=== PATIENT | male | born 1960 | race Caucasian/White ===

== ENCOUNTER 2022-03-27 16:27 | Emergency (ER) | payer OTHER ==
[~2022-03-27] VITALS: Ht 172.7 cm; Wt 90.7 kg
[2022-03-27] MEDS ORDERED: Permethrin60 GM TOP (17:26)
== END 2022-03-27 18:07 | disposition home or self-care (01) ==
LOC: ER 16:27
DX: B86 Scabies (principal); Z91.013 Allergy to seafood; Z88.6 Allergy status to analgesic agent
CPT/HCPCS: 99283

== ENCOUNTER 2023-02-27 03:55 | Inpatient (IN) | payer OTHER ==
[2023-02-27] VITALS (35 sets, daily range): BP systolic 97–150; BP diastolic 45–112
[~2023-02-27] VITALS: Ht 170.2 cm; Wt 112.0 kg
[~2023-02-27 03:55] MED LIST: Permethrin60 GM TOP
[2023-02-27 04:18] LABS: BASOPHILS ABSOLUTE AUTO 0.07 K/mm3 (0.00-0.23); BASOPHILS PERCENT AUTO 1 % (0-2); EOSINOPHILS ABSOLUTE AUTO 0.17 K/mm3 (0.00-0.68); EOSINOPHILS PERCENT AUTO 1 % (0-6); Hematocrit 37.2 % (37.0-53.0); Hemoglobin 11.3 g/dL (13.5-17.5); IMMATURE GRAN ABSOLUTE AUTO 0.05 K/mm3 (0.00-0.10); IMMATURE GRAN PERCENT AUTO 0 % (0-1); LYMPHOCYTES ABSOLUTE AUTO 2.21 K/mm3 (0.84-5.20); LYMPHOCYTES PERCENT AUTO 16 % (21-46); MONOCYTES ABSOLUTE AUTO 0.62 K/mm3 (0.16-1.47); MONOCYTES PERCENT AUTO 5 % (4-13); Mean Corpuscular HGB 21.6 pg (26.0-34.0); Mean Corpuscular HGB Conc 30.4 g/dL (31.5-36.5); Mean Corpuscular Volume 71 fL (80-100); Mean Platelet Volume 10.1 fL (9.1-12.4); NEUTROPHILS ABSOLUTE AUTO 10.49 K/mm3 (1.96-9.15); NEUTROPHILS PERCENT AUTO 77 % (41-73); Platelet Count 387 K/mm3 (150-400); RDW Coefficient Variation 15.3 % (11.7-14.2); RDW Standard Deviation 38.8 fL (35.1-46.3); Red Blood Cell Count 5.22 M/mm3 (4.30-5.90); White Blood Cell Count 13.61 K/mm3 (4.00-11.30)
[2023-02-27 04:32] LABS: Bilirubin, Total 0.2 mg/dL (0.1-1.0); Bun/Creatinine Ratio 14.7 (12.0-20.0); Calcium, Blood 9.4 mg/dL (8.5-10.1); Creatinine, Blood 1.02 mg/dL (0.60-1.20); Globulin, Blood 4.1 g/dL (2.2-4.0); Potassium, Blood 3.8 mmol/L (3.5-5.5); Total Protein, Blood 8.1 g/dL (6.4-8.2)
[2023-02-27 04:36] LABS: International Normalized Ratio 0.98; Prothrombin Time Results 10.3 Sec (9.7-11.5)
--- NOTE | 2023-02-27 07:10 | NUR ---
ASSUMED CARE PT IS A&O X4; SPO2 >92% ON RA; MAP >65 W/ SBP IN 160-170'S; CALLED DR LEE W/ ORDERS FOR HYDRALAZINE. PT DENIES CP, SOB, OR NAUSEA. COMPLAINS OF RIGHT COLLAR BONE PAIN THAT IS CHRONIC FOR PT. RIGHT RADIAL/FEMORAL SITE FREE OF OOZING/HEMATOMA. 11ML'S IN TR BAND PER REPORT. REPORT TO BE GIVEN TO ONCOMING NURSE. DR PIERRE AND DR LEE AT BEDSIDE AT ONE POINT SINCE ADMIT TO ASSESS AND TALK W/ PT.
[2023-02-27 07:56] LABS: CHOL/HDL RATIO 4.2; Cholesterol 162 mg/dL (50-200); HDL Cholesterol 39 mg/dL (>39); LDL/HDL RATIO 2.7; Low Density Lipoprotein Chol 106 mg/dL (0-110); Triglycerides 83 mg/dL (30-160); Very Low Density Lipoprot Chol 16 mg/dL (6-32)
[2023-02-27 08:14] LABS: U Amphetamine Screen Not Detected; U Barbituate Screen Not Detected; U Benzodiazapine Screen Not Detected; U Buprenorphine Screen Not Detected; U Cannabinoids Screen Not Detected; U Cocaine Screen Not Detected; U Methadone Screen Not Detected; U Methamphetamine Screen Not Detected; U Opiates Screen Not Detected; U Oxycodone Screen Not Detected; U Phencyclidine Screen Not Detected; U Propoxyphene Screen Not Detected
--- NOTE | 2023-02-27 08:44 | NUR ---
AM NOTE... ASSUMED CARE OF PT AT 0700, PT IS A&Ox4. S/P ANGIO WITH STENT TO THE RCA. PT DENIES CHEST PAIN/PRESSURE N/V OR SOB AT THIS TIME. PT HAS A RIGHT RADIAL SITE AND A SHEATH IN THE RIGHT GROIN. PT IS IN SINUS TACH IN THE 100'S-110'S. HE IS HYPERTENSIVE WITH SBPs IN THE 170'S-190'S. HE IS ON RA WITH O2 SATS>90%. THE PT WAS EDUCATED ON CARE OF THE RIGHT RADIAL SITE AND THE RIGHT GROIN SITE TO PREVENT BLEEDING, OOZING OR A HEMATOMA TO EITHER SITE. PT HAS BEEN NON-COMPLIANT WITH THIS EDUCATION. HE CONTINUES TO USE HIS RIGHT HAND/WRIST AND CONTINUES TO LIFT HIS RIGHT LEG AND SIT UP IN THE BED. PT VERBALIZED "I DON'T CARE I'M TIRED OF LAYING FLAT AND NOT MOVING!" WILL CONTINUE TO MONITOR.
[2023-02-27 12:11] LABS: Magnesium, Blood 1.8 mg/dL (1.6-2.4)
[2023-02-27 12:13] LABS: Bun/Creatinine Ratio 13.6 (12.0-20.0); Calcium, Blood 8.8 mg/dL (8.5-10.1); Creatinine, Blood 0.88 mg/dL (0.60-1.20)
--- NOTE | 2023-02-27 12:59 | NUR ---
PT UPDATE... PT HAS HAD 5 EPISODES OF SMALL RUNS OF VTACH SINCE 0700 AND 1 EPISODE OF 42 BEATS OF VTACH, PT IS NOT SYMPTOMATIC WITH THESE EPISODES AND HIS BP CONTINUES TO BE STABLE WITH MAPS> 65 AND SBPs 110-130'S. PT CONTINUES TO DENY ANY CHEST PAIN/PRESSURE SOB OR N/V. WAS NOTIFIED AND NEW ORDERS TO CHECK K+ AND MAG, NEW ORDERS FOR PO MAGOX WAS GIVEN. WILL CONTINUE TO MONITOR.
--- NOTE | 2023-02-27 14:27 | NUR ---
PT UPDATE.... RIGHT FEMORAL SHEATH WAS PULLED BY [facility], MANUAL PRESSURE WAS HELD FOR 20MINS UNTIL HEMOSTASIS WAS ACHIEVED. PT'S VS STABLE. PT'S SISTER AT THE BEDSIDE. THE PT AND HIS SISTER SPOKE WITH DIRECTOR OF PURCHASING ABOUT THE PT'S DISCHARGE PLANS. WILL CONTINUE TO MONITOR.
--- NOTE | 2023-02-27 18:26 | NUR ---
SHIFT SUMMARY... THE PT'S SHEATH AND TR BAND WERE REMOVED WNL, NO SWELLING, BLEEIND OR HEMATOMA WAS NOTED. PT HAS DENIED ANY CHEST PAIN SINCE ARRIVING AT THE ROOM. THE PT'S BP IMPROVED AFTER HE TOOK HIS PO MEDICATIONS. THE PT HAD SEVERAL RUNS OF VTACH THAT WERE NOT SYMPTOMATIC, THOSE EPISODES HAVE DECREASED SINCE THIS AFTERNOON. THE PT'S SISTER WAS AT THE BEDSIDE, SHE WAS UPDATED ON THE PT'S CONDTION AND PLAN OF CARE. PER DR. PIERRE PT IS TO BE NPO AFTER MIDNIGHT FOR POSSIBLE COMPUTER SCIENCE PROFESSOR PROCEDURE. CALL LIGHT IN REACH WILL CONTINUE TO MONITOR UNTIL REPORT IS GIVEN TO ONCOMING RN.
--- NOTE | 2023-02-27 19:39 | NUR ---
ASSUMED CARE PT IS A&O X4; SPO2 >92% ON RA; MAP >65 SBP IN THE 110'S; HR 80'S. PT DENIES CP, SOB, OR NAUSEA. RIGHT RADIAL AND FEMORAL SITE OBSERVED WITH OFFGOING NURSE. NO OOZING OR HEMATOMA NOTED AT EITHER SITE. NO BRUISING OR COMPLAINTS OF FLANK PAIN FROM PT. PT RESTING QUIETLY.
--- NOTE | 2023-02-27 23:51 | NUR ---
UPDATE PT STATES INABILITY TO SLEEP "TOO MUCH ON MY MIND". HOSPITALIST CALLED W/ ORDERS FOR OT MELATONIN. PT CONTINUES TO DENY CP. RADIAL AND FEMORAL SITES UNCHANGED FROM PREVIOUS ASSESSMENT.
[2023-02-28] VITALS (37 sets, daily range): BP systolic 91–129; BP diastolic 54–92
[2023-02-28 04:44] LABS: BASOPHILS ABSOLUTE AUTO 0.04 K/mm3 (0.00-0.23); BASOPHILS PERCENT AUTO 0 % (0-2); EOSINOPHILS PERCENT AUTO 1 % (0-6); Hematocrit 29.7 % (37.0-53.0); Hemoglobin 9.1 g/dL (13.5-17.5); IMMATURE GRAN ABSOLUTE AUTO 0.04 K/mm3 (0.00-0.10); IMMATURE GRAN PERCENT AUTO 0 % (0-1); LYMPHOCYTES PERCENT AUTO 21 % (21-46); MONOCYTES ABSOLUTE AUTO 1.16 K/mm3 (0.16-1.47); MONOCYTES PERCENT AUTO 11 % (4-13); Mean Corpuscular HGB 21.9 pg (26.0-34.0); Mean Corpuscular HGB Conc 30.6 g/dL (31.5-36.5); Mean Corpuscular Volume 71 fL (80-100); Mean Platelet Volume 10.3 fL (9.1-12.4); NEUTROPHILS ABSOLUTE AUTO 7.09 K/mm3 (1.96-9.15); NEUTROPHILS PERCENT AUTO 66 % (41-73); Platelet Count 338 K/mm3 (150-400); RDW Coefficient Variation 15.6 % (11.7-14.2); RDW Standard Deviation 39.8 fL (35.1-46.3); Red Blood Cell Count 4.16 M/mm3 (4.30-5.90); White Blood Cell Count 10.73 K/mm3 (4.00-11.30)
[2023-02-28 05:15] LABS: Albumin, Blood 3.3 g/dL (3.4-5.0); Bilirubin, Total 0.8 mg/dL (0.1-1.0); Bun/Creatinine Ratio 16.2 (12.0-20.0); Calcium, Blood 8.5 mg/dL (8.5-10.1); Creatinine, Blood 1.11 mg/dL (0.60-1.20); Globulin, Blood 3.2 g/dL (2.2-4.0); Potassium, Blood 3.8 mmol/L (3.5-5.5); Total Protein, Blood 6.5 g/dL (6.4-8.2)
--- NOTE | 2023-02-28 06:19 | NUR ---
SHIFT SUMMARY PT RESTED QUIETLY/SLEPT FOR MOST OF NIGHT AFTER MELATONIN ADMINISTRATION. CONTINUES TO DENY CP, SOB, OR NAUSEA. BOTH RADIAL AND FEMORAL SITES REMAIN UNCHANGED W/ NO BRUISING NOTED ON FLANK. NSR 70'S; SPO2 >92% ON RA; MAP >65. NO ACUTE EVENTS OVERNIGHT.
--- NOTE | 2023-02-28 07:30 | NUR ---
DR. PIERRE CONTACTED AND ASKED ABOUT GIVING AM MEDICATIONS RECEIVED REPORT THAT PATIENT MAY GO BACK TO WOMEN NURSE TODAY. DR. PIERRE STATED TO KEEP PATIENT NPO BUT TO GIVE ALL 0900 MEDICATIONS WITH SMALL SIP OF WATER.
--- NOTE | 2023-02-28 08:00 | NUR ---
INITIAL ASSESSMENT PATIENT SLEEPING UPON ENTERING ROOM. PATIENT ALERT AND ORIENTED X 4. PATIENT STATES HE "FEELS GROGGY" THIS AM AND THAT IT IS PROBABLY FROM TAKING MELATONIN LAST NIGHT. FLAT AFFECT NOTED. PATIENT COOPERATIVE. PATIENT AFEBRILE. PATIENT DENIES PAIN ANYWHERE INCLUDING CHEST PAIN OR PRESSURE. PATIENT SATTING 90% AND GREATER ON RA. LUNGS CLEAR THROUGHOUT. PATIENT IN SR, HR IN THE 70S. SBP IN THE LOW 100S. UMBILICAL HERNIA NOTED. PATIENT NPO AT THIS TIME IN CASE GOES BACK TO [employer]. DATE OF LAST BM UNKNOWN. URINAL AT BEDSIDE. R RADIAL AND R GROIN [employer] ACCESS SITE WNL; NO BLEEDING, BRUISING, OR HEMATOMA NOTED; TEGADERMS IN PLACE. IV FLUSHED AND SALINE LOCKED. BED LOW, CALL LIGHT IN REACH. CARE CONTINUES.
--- NOTE | 2023-02-28 12:00 | NUR ---
PATIENT AFEBRILE. HR IN THE 70S. SBP IN THE LOW 100S. PATIENT IRRITABLE AT TIMES. GRION AND RADIAL SITES REMAIN STABLE WITH NO CHANGES. BLOOD SUGAR 110. NO OTHER ACUTE CHANGES TO NOTE ON AT THIS TIME. CARE CONTINUES.
--- NOTE | 2023-02-28 12:30 | NUR ---
PATIENT ANGRY AND PULLING OFF LINES AND CORDS. THIS IS THE 4TH TIME THAT PATIENT HAS PULLED OFF LINES/ CORDS/ MONITORING EQUIPMENT TODAY. PATIENT HAS BEEN IRRITABLE THIS SHIFT BUT THIS TIME PATIENT ANGRY AND TRYING TO GET CLOTHES/ BELONGINGS DOWN. RAISE DRILLER ASKED WHAT PATIENT WAS DOING AND IF NEEDED HELP AND PATIENT STATES "I AM OUT OF HERE!". PATIENT MAD SAYING THAT "HIS BED IS A SHIT SHOW". PATIENT ASKED IF HE WOULD LIKE REGULAR SHEET INSTEAD OF LIFT SHEET ON BED. PATIENT STATED "NO" AND THEN GOT BACK IN BED. WHILE RAISE DRILLER ATTEMPTING TO PUT MONITORING EQUIPMENT BACK ON PATIENT, PATIENT STATES "YOU REALLY THINK THAT STUFF IS GOING TO BE ABLE TO TELL YOU IF I HAVE A COLD?". RAISE DRILLER ASKED IF HE WOULD LIKE WARM TEA OR WARM BLANKET. PATIENT STATES NO. THIS NURSE TO ROOM. PATIENT SEEMS GUARDED AND IS NOT ANSWERING MOST OF NURSE'S QUESTIONS ABOUT WHY HE IS UPSET. NURSE ASKED IF PATIENT REMEMBERED CONVERSATION WITH DR. PIERRE IN AM. PATIENT STATES "NO". PATIENT INFORMED THAT IT SOUNDS LIKE HE WILL BE ABLE TO GO HOME TOMORROW AND WILL HAVE THE REST OF HIS HEART FIXED OUTPATIENT. PATIENT SEEMED TO BECOME SLIGHTLY MORE COOPERATIVE AT THIS TIME AND ALLOWED NURSE TO PUT MONITORING EQUIPMENT BACK ON. BED ALARM ON. CARE CONTINUES.
--- NOTE | 2023-02-28 16:40 | NUR ---
PATIENT AFEBRILE. HR IN THE 60S. SBP IN THE LOW 100S. BLOOD SUGAR 120. R GROIN AND R WRISTS SITES REMAIN STABLE AND UNCHANGED. PATIENT AMBULATED AROUND ROOM WITH NURSE IN TOW. PATIENT DENIES CHEST PAIN OR PRESSURE. PATIENT EDUCATED ON IMPORTANCE ON TAKING ASPIRIN AND BRILINTA AT HOME TO KEEP STENT OPEN; UNSURE IF PATIENT UNDERSTANDS; REINFORCEMENT NEEDED. NO OTHER ACUTE CHANGES TO NOTE ON AT THIS TIME. CARE CONTINUES.
--- NOTE | 2023-02-28 18:38 | NUR ---
SHIFT SUMMARY PATIENT TIRED THIS SHIFT. PATIENT NAPPED ON AND OFF THROUGHOUT DAY AND DID NOT WANT TO BE BOTHERED MUCH. PATIENT REMAINED ALERT AND ORIENTED X 4, AFEBRILE. PATIENT HAS FLAT AFFECT. IRRITABLE AT TIMES. PATIENT BECAME ANGRY AT ONE POINT (FOR UNKNOWN REASON) AND WAS TRYING TO GO HOME. PATIENT CONVINCED THAT IT WAS FOR HIS BEST INTEREST TO STAY. PATIENT CALMED DOWN AFTER LONG TALK. PATIENT SBA AROUND ROOM. PATIENT AMBULATED WELL THIS SHIFT AND HAD NO COMPLAINTS OF CHEST PAIN OR PRESSURE DURING OR AFTER THE WALK AROUND THE ROOM. PATIENT HAD NO COMPLAINTS FOR ENTIRETY OF SHIFT. PATIENT REMAINED SATTING 90% AND GREATER ON RA. PATIENT REMAINED IN SR, HR 60S TO 70S. SBP 90S TO 120S. NO BM THIS SHIFT. PATIENT HAD GOOD APPETITE. PATIENT VOIDED 420 MLS OF JENNIFER COLORED URINE INTO URINAL INDEPENDENTLY. R RADIAL AND R GROIN SITES REMAINED STABLE; NO BLEEDING, BRUISING, OR HEMATOMAS T/O SHIFT. BLOOD SUGARS RANGED FROM 110 TO 120S THIS SHIFT. PATIENT REFUSED BED BATH THIS SHIFT. PATIENT EDUCATED ON IMPORTANCE OF TAKING ASA AND BRILINTA DAILY AFTER HE GOES HOME BECAUSE OF STENT PLACEMENT. UNSURE IF PATIENT UNDERSTANDS; REINFORCEMENT NEEDED. BED LOW, CALL LIGHT IN REACH. REPORT WILL BE GIVEN TO ASSUMING GRINDING SUPERVISOR NURSE SHORTLY.
--- NOTE | 2023-02-28 19:29 | NUR ---
ASSUMED CARE PT IS A&O X4; SPO2 >92% ON RA; MAP >65; NSR 80'S. PT DENIES CP, SOB, OR NAUSEA. AT THIS TIME COOPERATIVE W/ CARE. SALINE LOCKED. BOTH FEMORAL AND RADIAL SITES REMAIN UNCHANGED FROM PREVIOUS NIGHT'S SHIFT.
[2023-03-01] VITALS (13 sets, daily range): BP systolic 94–148; BP diastolic 52–93
[2023-03-01 04:07] LABS: BASOPHILS ABSOLUTE AUTO 0.05 K/mm3 (0.00-0.23); BASOPHILS PERCENT AUTO 1 % (0-2); EOSINOPHILS ABSOLUTE AUTO 0.22 K/mm3 (0.00-0.68); EOSINOPHILS PERCENT AUTO 3 % (0-6); Hematocrit 29.7 % (37.0-53.0); Hemoglobin 8.8 g/dL (13.5-17.5); IMMATURE GRAN ABSOLUTE AUTO 0.04 K/mm3 (0.00-0.10); IMMATURE GRAN PERCENT AUTO 0 % (0-1); LYMPHOCYTES ABSOLUTE AUTO 2.44 K/mm3 (0.84-5.20); LYMPHOCYTES PERCENT AUTO 27 % (21-46); MONOCYTES ABSOLUTE AUTO 0.87 K/mm3 (0.16-1.47); MONOCYTES PERCENT AUTO 10 % (4-13); Mean Corpuscular HGB 21.4 pg (26.0-34.0); Mean Corpuscular HGB Conc 29.6 g/dL (31.5-36.5); Mean Corpuscular Volume 72 fL (80-100); Mean Platelet Volume 10.4 fL (9.1-12.4); NEUTROPHILS ABSOLUTE AUTO 5.27 K/mm3 (1.96-9.15); NEUTROPHILS PERCENT AUTO 59 % (41-73); Platelet Count 323 K/mm3 (150-400); RDW Coefficient Variation 15.4 % (11.7-14.2); RDW Standard Deviation 40.1 fL (35.1-46.3); Red Blood Cell Count 4.11 M/mm3 (4.30-5.90); White Blood Cell Count 8.89 K/mm3 (4.00-11.30)
[2023-03-01 04:28] LABS: Albumin, Blood 3.3 g/dL (3.4-5.0); Bilirubin, Total 0.5 mg/dL (0.1-1.0); Bun/Creatinine Ratio 19.8 (12.0-20.0); Calcium, Blood 8.5 mg/dL (8.5-10.1); Creatinine, Blood 1.01 mg/dL (0.60-1.20); Globulin, Blood 3.3 g/dL (2.2-4.0); Potassium, Blood 3.7 mmol/L (3.5-5.5); Total Protein, Blood 6.6 g/dL (6.4-8.2)
--- NOTE | 2023-03-01 06:06 | NUR ---
SHIFT SUMMARY PT A&O X4; SPO2 >92% ON RA; MAP >65; HR 60-70'S. PT HR DIPPED DOWN INTO HIGH 40'S SEVERAL TIMES DURING THE NIGHT FOR LESS THAN A MINUTE; PT ASYMPTOMATIC AND DENIED CP, DIZZINESS, OR LIGHT HEADEDNESS. PT CONTINUES TO DENY CP, SOB, OR NAUSEA. BOTH FEMORAL AND RADIAL SITES WNL. PT STATES HE DID NOT SLEEP WELL; RESTED QUIETLY T/O MOST OF NIGHT AND WAS COOPERATIVE W/ CARE. NO ACUTE EVENTS OVERNIGHT.
--- NOTE | 2023-03-01 09:03 | NUR ---
AM NOTE: PATIENT ALERT AND ORIENTED. VERY ANXIOUS ABOUT HIS KEYS AND WALLET AND NOT WANTING TO GO BACK TO [facility]. PATIENT STATES HE IS ON WAITLIST TO MOVE TO [facility] IN [place]. ON ROOM AIR, LUNGS SOUNDING CLEAR. DENIES SOB/COUGH. EVEN AND UNLABORED RESPIRATIONS. TELE SHOWING SR WITH HR 70-80'S. DENIES CHEST PAIN/PRESSURE/PALPITATIONS. BP STABLE. RIGHT RADIAL AND RIGHT GROIN SITE WNL. NO SIGNS OF BLEEDING, REMAINS SOFT AND NONTENDER. TEGADERMS IN PLACE. BOWEL TONES PRESENT. EATING AND VOIDING WNL. UMBILICAL HERNIA PRESENT. DR. PIERRE, DR. MORALEZ AND DR. THORNTON BY THIS AM TO ASSESS. POSSIBLE DISCHARGE. THIS RN PROVIDED EDUCATION THIS AM REGARDING NEW MEDICATIONS AND IMPORTANCE OF THEM. PATIENT ABLE TO TEACH BACK MEDICATION EDUCATION. CALL LIGHT IN REACH. EATING BREAKFAST AT THIS TIME.
[2023-03-01] MEDS ORDERED: ATOR80 PO (11:14)
[2023-03-01] MEDS ORDERED: ASPI81CH PO (11:14)
[2023-03-01] MEDS ORDERED: Prinivil10 MG PO (11:15)
[2023-03-01] MEDS ORDERED: METO50ER PO (11:16)
[2023-03-01] MEDS ORDERED: TICA90TA PO (11:17)
--- NOTE | 2023-03-01 11:47 | NUR ---
PLANS FOR DISCHARGE, THIS RN CALLED [facility] TO SET UP CARDIAC FOLLOW UP APPOINTMENT WITHIN 1-2 WEEKS, HEART CENTER TO CALL PATIENT BACK TO SCHEDULE APPOINTMENT.
--- NOTE | 2023-03-01 13:06 | NUR ---
PATIENT SISTER ON WAY TO SUPPLIER MANAGER. ONCE SISTER IS HERE THIS RN WILL REVIEW DISCHARGE EDUCATION. PATIENT GETTING DRESSED AT THIS TIME. REFUSES THIS RN'S HELP WITH GETTING DRESSED.
--- NOTE | 2023-03-01 14:08 | NUR ---
DISCHARGE: SISTER JOSE E IN TO PICK PATIENT UP. THIS RN REVIEWED ALL DISCHARGE INSTRUCTIONS INCLUDING NEW MEDICATIONS, HOLDING PARAMETERS FOR METOPROLOL, STENT CARD, FOLLOW UP WITH PCP/CARDIOLOGY/DR. MANZO, WRIST AND GROIN SITE PRECAUTIONS, SIGNS/SYMPTOMS OF WHEN TO RETURN. THIS RN CONFIRMED PATIENT CELL PHONE NUMBER FOR HEART CENTER TO CALL AND SCHEDULE 1-2 WEEK FOLLOW UP APPOINTMENT. THIS RN ASLO CONFIRMED AND CALLED THE [facility] TO ENSURE MEDICATION LIST WAS FAXED. PATIENT INSTRUCTED TO MARKETING SALES CONSULTANT MEDICATIONS FROM [facility] AND TAKE PRESCRIBED. PATIENT LEFT UNIT WITH ALL PERSONAL BELONGINGS VIA WHEELCHAIR.
--- NOTE | 2023-03-01 14:55 | NUR ---
MED REC EDIT DONE AFTER PATIENT WAS DISCHARGED. PATIENT CALLED AND UPDATED ON HOLDING PARAMETERS FOR METORPOLOL AND LISINOPRIL AND NO HOLDING PARAMETERS FOR BRILINTA. NO OTHER CHANGES TO MED REC
== END 2023-03-01 13:45 | disposition home or self-care (01) | DRG 324 ==
LOC: ER 03:55 → ICUE 04:10
PROVIDERS: Emergency Medicine; Family Medicine; ADMIT Internal Medicine Cardiovascular Disease
PROC: 027034Z Dilation of Coronary Artery, One Artery with Drug-eluting Intraluminal Device, Percutaneous Approach (ICD-10-PCS; principal; 2023-02-27)
PROC: 02F03ZZ Fragmentation in Coronary Artery, One Artery, Percutaneous Approach (ICD-10-PCS; 2023-02-27)
PROC: 4A023N7 Measurement of Cardiac Sampling and Pressure, Left Heart, Percutaneous Approach (ICD-10-PCS; 2023-02-27)
PROC: B2111ZZ Fluoroscopy of Multiple Coronary Arteries using Low Osmolar Contrast (ICD-10-PCS; 2023-02-27)
PROC: B240ZZ3 Ultrasonography of Single Coronary Artery, Intravascular (ICD-10-PCS; 2023-02-27)
DX: I21.19 ST elevation (STEMI) myocardial infarction involving other coronary artery of inferior wall (principal); I47.10 Supraventricular tachycardia, unspecified; I16.1 Hypertensive emergency; Z68.41 Body mass index [BMI] 40.0-44.9, adult; I10 Essential (primary) hypertension; F10.90 Alcohol use, unspecified, uncomplicated; F15.10 Other stimulant abuse, uncomplicated; R73.9 Hyperglycemia, unspecified; I25.10 Atherosclerotic heart disease of native coronary artery without angina pectoris; I27.20 Pulmonary hypertension, unspecified; D64.9 Anemia, unspecified; E66.9 Obesity, unspecified; D72.829 Elevated white blood cell count, unspecified; I07.1 Rheumatic tricuspid insufficiency; Z91.148 Patient's other noncompliance with medication regimen for other reason; Z79.899 Other long term (current) drug therapy; Z88.8 Allergy status to other drugs, medicaments and biological substances; Z87.891 Personal history of nicotine dependence; Z91.013 Allergy to seafood
CPT/HCPCS: 0715T; 36415; 71045; 76937; 80048; 80053; 80061; 82947; 83036; 83735; 84443; 84484; 85025; 85347; 85610; 85730; 92978; 93005; 93010; 93306; 93454; 96374-59; 96375-59; 99152; 99153; 99285-25; A9270; C1725; C1753; C1761; C1769; C1874; C1887; C1894; C9606; J0360; J0461; J1200; J1265; J1644; J1720; J2250; J2371; J2405; J3010; J7030; J7040; J7050; Q9967

== ENCOUNTER 2023-08-07 12:43 | Emergency (ER) | payer OTHER ==
[~2023-08-07] VITALS: Ht 170.2 cm; Wt 117.9 kg
[~2023-08-07 12:43] MED LIST changes: +ASPI81CH PO; +ATOR80 PO; +METO50ER PO; +Prinivil10 MG PO; +TICA90TA PO
[2023-08-07 13:28] LABS: BASOPHILS ABSOLUTE AUTO 0.08 K/mm3 (0.00-0.23); BASOPHILS PERCENT AUTO 1 % (0-2); EOSINOPHILS PERCENT AUTO 6 % (0-6); Hematocrit 30.8 % (37.0-53.0); Hemoglobin 9.2 g/dL (13.5-17.5); IMMATURE GRAN ABSOLUTE AUTO 0.07 K/mm3 (0.00-0.10); IMMATURE GRAN PERCENT AUTO 1 % (0-1); LYMPHOCYTES ABSOLUTE AUTO 1.53 K/mm3 (0.84-5.20); LYMPHOCYTES PERCENT AUTO 19 % (21-46); MONOCYTES ABSOLUTE AUTO 0.67 K/mm3 (0.16-1.47); MONOCYTES PERCENT AUTO 8 % (4-13); Mean Corpuscular HGB 21.1 pg (26.0-34.0); Mean Corpuscular HGB Conc 29.9 g/dL (31.5-36.5); Mean Corpuscular Volume 71 fL (80-100); Mean Platelet Volume 9.7 fL (9.1-12.4); NEUTROPHILS ABSOLUTE AUTO 5.38 K/mm3 (1.96-9.15); NEUTROPHILS PERCENT AUTO 65 % (41-73); Platelet Count 348 K/mm3 (150-400); RDW Coefficient Variation 18.5 % (11.7-14.2); Red Blood Cell Count 4.36 M/mm3 (4.30-5.90); White Blood Cell Count 8.23 K/mm3 (4.00-11.30)
[2023-08-07 14:08] LABS: Albumin, Blood 3.6 g/dL (3.4-5.0); Albumin/Globulin Ratio 0.9 (0.8-1.8); Bilirubin, Total 0.6 mg/dL (0.1-1.0); Calcium, Blood 9.2 mg/dL (8.5-10.1); Creatinine, Blood 0.85 mg/dL (0.60-1.20); Globulin, Blood 3.9 g/dL (2.2-4.0); Total Protein, Blood 7.5 g/dL (6.4-8.2)
[2023-08-07] MEDS ORDERED: Ipratropium/Albuterol SulF 2.5-0.5MG/3 ML Amp INH ONE (15:50)
[2023-08-07] MEDS ORDERED: Benzonatate 100 MG Cap PO ONE (15:50)
[2023-08-07] MEDS ORDERED: Amiodarone HCl200 MG PO (16:02)
[2023-08-07] MEDS ORDERED: DOCU100 PO (16:03)
[2023-08-07] MEDS ORDERED: LOSA25 PO (16:03)
[2023-08-07] MEDS ORDERED: BUME1 PO (16:03)
[2023-08-07] MEDS ORDERED: POTCHL20ER PO (16:04)
[2023-08-07 16:09] VITALS: BP 172/96
[2023-08-07 16:47] LABS: Influenza A, PCR NEGATIVE (NEGATIVE); Influenza B, PCR NEGATIVE (NEGATIVE); Resp Syncytial Virus, PCR NEGATIVE (NEGATIVE); SARS-Cov-2 (COVID-19) PCR, MMC NEGATIVE (NEGATIVE)
[2023-08-07] MEDS ORDERED: BENZ100A PO (17:35)
[2023-08-07] MEDS ORDERED: ALBU90OI INH (17:35)
[2023-08-07] MEDS ORDERED: RX Prepack Albuterol 1 PREPACK/6.7 GM INH UD ONE (17:35)
== END 2023-08-07 17:46 | disposition home or self-care (01) ==
LOC: ER 12:43
PROVIDERS: Emergency Medicine; Student in an Organized Health Care Education/Training Program
DX: J44.89 Other specified chronic obstructive pulmonary disease (principal); Z88.6 Allergy status to analgesic agent; Z91.013 Allergy to seafood; Z79.899 Other long term (current) drug therapy; Z79.82 Long term (current) use of aspirin; Z87.891 Personal history of nicotine dependence; Z11.52 Encounter for screening for COVID-19
CPT/HCPCS: 0241U; 71046; 80053; 83880; 84484; 85025; 93005; 93010; 94640; 94664; 99285-25; A9270

== ENCOUNTER 2023-12-05 15:47 | Emergency (ER) | payer OTHER ==
[~2023-12-05] VITALS: Ht 170.2 cm; Wt 118.4 kg
[~2023-12-05 15:47] MED LIST changes: +ALBU90OI INH; +Amiodarone HCl200 MG PO; +BENZ100A PO; +BUME1 PO; +DOCU100 PO; +LOSA25 PO; +POTCHL20ER PO
[2023-12-05 16:24] LABS: BASOPHILS ABSOLUTE AUTO 0.06 K/mm3 (0.00-0.23); BASOPHILS PERCENT AUTO 1 % (0-2); EOSINOPHILS ABSOLUTE AUTO 0.14 K/mm3 (0.00-0.68); EOSINOPHILS PERCENT AUTO 2 % (0-6); Hemoglobin 9.9 g/dL (13.5-17.5); IMMATURE GRAN ABSOLUTE AUTO 0.03 K/mm3 (0.00-0.10); IMMATURE GRAN PERCENT AUTO 1 % (0-1); LYMPHOCYTES ABSOLUTE AUTO 1.57 K/mm3 (0.84-5.20); LYMPHOCYTES PERCENT AUTO 25 % (21-46); MONOCYTES ABSOLUTE AUTO 0.55 K/mm3 (0.16-1.47); MONOCYTES PERCENT AUTO 9 % (4-13); Mean Corpuscular HGB 19.6 pg (26.0-34.0); Mean Corpuscular HGB Conc 29.1 g/dL (31.5-36.5); Mean Corpuscular Volume 67 fL (80-100); Mean Platelet Volume 9.3 fL (9.1-12.4); NEUTROPHILS ABSOLUTE AUTO 3.98 K/mm3 (1.96-9.15); NEUTROPHILS PERCENT AUTO 63 % (41-73); Platelet Count 385 K/mm3 (150-400); RDW Coefficient Variation 17.7 % (11.7-14.2); RDW Standard Deviation 42.2 fL (35.1-46.3); Red Blood Cell Count 5.06 M/mm3 (4.30-5.90); White Blood Cell Count 6.33 K/mm3 (4.00-11.30)
[2023-12-05 16:44] LABS: Bun/Creatinine Ratio 16.8 (12.0-20.0); Calcium, Blood 9.3 mg/dL (8.5-10.1); Creatinine, Blood 0.89 mg/dL (0.60-1.20); Potassium, Blood 4.1 mmol/L (3.5-5.5)
[2023-12-05] MEDS ORDERED: Metoprolol Tartrate 1 MG/ML 5 ML VIAL IV PRN (17:45)
[2023-12-05] MEDS ORDERED: Metoprolol Tartrate 50 MG Tab PO ONE (19:00)
[2023-12-05 19:27] LABS: Free Thyroxine 1.34 ng/dL (0.70-1.60)
[2023-12-05 19:29] LABS: Thyroid Stimulating Hormone 1.22 uIU/mL (0.360-4.800)
[2023-12-05] MEDS ORDERED: Diltiazem HCl 5 MG / ML 5ML Vial IV ONE (19:50)
[2023-12-05] MEDS ORDERED: dilTIAZem HCL 30 MG TAB PO ONE (20:10)
[2023-12-05 20:45] VITALS: BP 124/92
[2023-12-05] MEDS ORDERED: METO50 PO (21:29)
[2023-12-05] MEDS ORDERED: ELIQUIS5 M2 PO (21:29)
[2023-12-05] MEDS ORDERED: Apixaban 5 MG Tab PO ONE (21:30)
== END 2023-12-05 21:53 | disposition home or self-care (01) ==
LOC: ER 15:47
PROVIDERS: Physician Assistant; Student in an Organized Health Care Education/Training Program
DX: I48.92 Unspecified atrial flutter (principal); I10 Essential (primary) hypertension; Z86.79 Personal history of other diseases of the circulatory system; Z87.891 Personal history of nicotine dependence; Z79.82 Long term (current) use of aspirin; Z79.899 Other long term (current) drug therapy; Z88.6 Allergy status to analgesic agent; Z91.013 Allergy to seafood
CPT/HCPCS: 71046; 80053; 83735; 83880; 84439; 84443; 84484; 85025; 85379; 93005; 93010; 96374; 96375; 99285-25; A9270

== ENCOUNTER 2024-01-18 06:00 | Day surgery (SDC) | payer OTHER ==
[~2024-01-18 06:00] MED LIST changes: +ELIQUIS5 M2 PO; +FURO20 PO; +METO50 PO
[2024-01-18] MEDS ORDERED: NS 1,000 ML IV ONE (06:39)
[2024-01-18] MEDS ORDERED: Benzocaine Oral Spray 0.5ML UD ONE (06:42)
--- NOTE | 2024-01-18 07:24 | NUR ---
PT CARDIOVERTED /C 60J. SR 65-70BPM POST CARDIOVERSION.
--- NOTE | 2024-01-18 07:32 | NUR ---
ASSUMED CARE FROM ANESTHESIA. PT AWAKE AND VERBALIZING WELL.
[2024-01-18 07:33] VITALS: BP 140/97
[2024-01-18 07:36] VITALS: BP 157/101
[2024-01-18 07:39] VITALS: BP 154/94
[2024-01-18 07:42] VITALS: BP 157/91
[2024-01-18 07:45] VITALS: BP 136/100
--- NOTE | 2024-01-18 08:15 | NUR ---
PT AND [facility] CAREGIVER VERBLIZED UNDERSTANDING OF WRITTEN AND VERBAL D/C INST. IV REMOVED. SR 70BPM ON D/C. PT TAKEN OUT OF THE HRT CENTER VIA W/C.
[2024-01-18] MEDS ORDERED: Ketamine HCl 100 MG / ML 5ML Vial XX ONE (17:34)
[2024-01-18] MEDS ORDERED: Propofol 10mg/ml 20 ml Vial (Procedural) IV ONE (17:34)
== END 2024-01-19 04:03 | disposition home or self-care (01) ==
LOC: MHTC 06:00
DX: I48.91 Unspecified atrial fibrillation (principal); I48.92 Unspecified atrial flutter; I34.0 Nonrheumatic mitral (valve) insufficiency; I36.1 Nonrheumatic tricuspid (valve) insufficiency; I10 Essential (primary) hypertension; I25.10 Atherosclerotic heart disease of native coronary artery without angina pectoris; I25.2 Old myocardial infarction; E66.9 Obesity, unspecified; Z68.41 Body mass index [BMI] 40.0-44.9, adult; Z79.899 Other long term (current) drug therapy; Z79.01 Long term (current) use of anticoagulants; Z87.891 Personal history of nicotine dependence; Z95.1 Presence of aortocoronary bypass graft; Z91.013 Allergy to seafood; Z88.8 Allergy status to other drugs, medicaments and biological substances
CPT/HCPCS: 92960; 93005; 93010; 93312; 93325; A9270; J2704; J7030

== ENCOUNTER 2024-01-20 12:19 | Emergency (ER) | payer OTHER ==
[~2024-01-20] VITALS: Ht 170.2 cm; Wt 120.2 kg
[2024-01-20 12:49] LABS: BASOPHILS ABSOLUTE AUTO 0.07 K/mm3 (0.00-0.23); BASOPHILS PERCENT AUTO 1 % (0-2); EOSINOPHILS ABSOLUTE AUTO 0.21 K/mm3 (0.00-0.68); EOSINOPHILS PERCENT AUTO 2 % (0-6); Hemoglobin 8.2 g/dL (13.5-17.5); IMMATURE GRAN ABSOLUTE AUTO 0.05 K/mm3 (0.00-0.10); IMMATURE GRAN PERCENT AUTO 1 % (0-1); LYMPHOCYTES ABSOLUTE AUTO 1.44 K/mm3 (0.84-5.20); LYMPHOCYTES PERCENT AUTO 14 % (21-46); MONOCYTES ABSOLUTE AUTO 0.99 K/mm3 (0.16-1.47); MONOCYTES PERCENT AUTO 10 % (4-13); Mean Corpuscular HGB 18.4 pg (26.0-34.0); Mean Corpuscular HGB Conc 28.3 g/dL (31.5-36.5); Mean Corpuscular Volume 65 fL (80-100); Mean Platelet Volume 9.2 fL (9.1-12.4); NEUTROPHILS ABSOLUTE AUTO 7.47 K/mm3 (1.96-9.15); NEUTROPHILS PERCENT AUTO 73 % (41-73); Platelet Count 383 K/mm3 (150-400); RDW Coefficient Variation 16.9 % (11.7-14.2); RDW Standard Deviation 38.7 fL (35.1-46.3); Red Blood Cell Count 4.45 M/mm3 (4.30-5.90); White Blood Cell Count 10.23 K/mm3 (4.00-11.30)
[2024-01-20 13:07] LABS: Base Excess Venous -2.7 mmol/L; Bicarbonate Venous 22.4 mmol/L (24.0-30.0); PCO2 Venous 37.1 mmHg (38-42); pH Blood Venous 7.39 (7.34-7.37)
[2024-01-20 13:13] LABS: Albumin, Blood 3.8 g/dL (3.4-5.0); Albumin/Globulin Ratio 1.1 (0.8-1.8); Bilirubin, Total 1.2 mg/dL (0.1-1.0); Bun/Creatinine Ratio 17.4 (12.0-20.0); Calcium, Blood 8.7 mg/dL (8.5-10.1); Creatinine, Blood 0.92 mg/dL (0.60-1.20); Globulin, Blood 3.6 g/dL (2.2-4.0); Potassium, Blood 3.9 mmol/L (3.5-5.5); Total Protein, Blood 7.4 g/dL (6.4-8.2)
[2024-01-20] MEDS ORDERED: Bumetanide 0.25 MG/ML 10ML Vial IV ONE (14:55)
[2024-01-20 16:20] VITALS: BP 151/74
== END 2024-01-20 16:28 | disposition home or self-care (01) ==
LOC: ER 12:19
PROVIDERS: Physician Assistant
DX: I50.9 Heart failure, unspecified (principal); Z87.891 Personal history of nicotine dependence; Z88.6 Allergy status to analgesic agent; Z91.013 Allergy to seafood
CPT/HCPCS: 71046; 80053; 82803; 83880; 84484; 85025; 93005; 93010; 99285-25